=== PATIENT | male | born 1990 | race Caucasian/White ===

== ENCOUNTER 2018-06-29 19:06 | Emergency (ER) | payer OTHER ==
[~2018-06-29 19:06] MED LIST: DOXY-181 PO; INSU100C14 SQ
[2018-06-29] MEDS ORDERED: INSU100V24 SQ (19:14)
--- NOTE | 2018-06-29 19:29 | ER Report ---
History and Physical Time Seen By MD: 19:29 Hx. of Stated Complaint: right 3rd finger laceration while playing rugby HPI/ROS CHIEF COMPLAINT: Laceration HISTORY OF PRESENT ILLNESS: This is a 28-year-old male presents to emergency room for laceration to his right middle finger. Patient states that he is p laying rugby about 30 minutes prior to arrival, came down on his right hand and likely had a hyperextension of the right middle finger where the skin split at the palmar side of the DIP joint. The tendon is visible, he does have good flexion and extension of the finger. Minimal pain, minimal bleeding. No other injuries. Denies hitting his head. No nausea or vomiting. REVIEW OF SYSTEMS: Respiratory: No cough, no dyspnea. Cardiovascular: No chest pain, no palpitations. Gastrointestinal: No vomiting, no abdominal pain. Musculoskeletal: As above. Integumentary: As above. Allergies: Coded Allergies: sulfamethoxazole (Verified Allergy, Mild, ITCHING, 06/29/18) trimethoprim (Verified Allergy, Mild, ITCHING, 06/29/18) Home Meds Active Scripts Cephalexin 500 Mg Tab (KEFLEX 500 MG TAB) 500 Mg Tablet, 500 MG PO Q6H, #28 TAB Prov:GRACE CARTER Brenda GEAR CHANGER-BC 06/29/18 Reported Medications Insulin Lispro 100 Un/Ml Vial (HUMALOG 100 U/ML VIAL) 100 Unit/1 Ml Vial, 45 UNIT SQ DAILY, VIAL 06/29/18 Discontinued Reported Medications Insulin Aspart (NOVOLOG) 100 Unit/1 Ml Cartridge, 100 UNIT SQ 12/07/14 Past Medical/Surgical History The patient has a past medical and surgical history of type I diabetes, uses insulin pump, cecal volvulus. Reviewed Nurses Notes: Yes Smoking Status: Never Smoker Hx Substance Use Disorder: No Hx Alcohol Use: No Constitutional Vital Sign - Last 24 Hours 06/29/18 06/29/18 06/29/18 06/29/18 19:10 19:15 19:30 19:45 Temp 97.9 Pulse 82 79 90 91 Resp 16 B/P (MAP) 141/79 Pulse Ox 95 93 92 94 O2 Delivery Room Air 06/29/18 06/29/18 06/29/18 20:00 20:15 20:30 Pulse 88 88 90 B/P (MAP) 132/87 (102) Pulse Ox 93 92 92 Physical Exam General Appearance: The patient is alert, has no immediate need for airway protection and no current signs of toxicity. Eyes: Pupils equal and round no injection. Respiratory: Chest is non tender, lungs are clear to auscultation. Cardiac: regular rate and rhythm. Gastrointestinal: Abdomen is soft and non tender, no masses, bowel sounds normal. Musculoskeletal: Neck: Neck is supple and non tender. Extremities have full range of motion and are non tender. Skin: To semi-a laceration to the palmar side of the right middle finger at the DIP joint. Tendon is visualized no injury identified. DIFFERENTIAL DIAGNOSIS: After history and physical exam differential diagnosis was considered for laceration. Medical Decision Making ED Course/Re-evaluation ED Course The patient was admitted to a room. A history and physical were obtained. Diagnoses were considered. The laceration was thoroughly irrigated and repaired as noted below. Patient tolerated well. Patient was placed on Keflex. He will also follow-up with Dr. Acosta for reevaluation. He was placed in a pressure dressing and a splint in anatomic position. The patient had no other questions or concerns at this time and was discharged home. Procedure: Laceration repair. Verbal consent was obtained from the patient. The 2 cm laceration on the palmar side of the middle right finger at the DIP was anesthetized in the usual fashion. The wound was scrubbed, draped and explored to its base with a gloved finger. There were no deep structures involved. No tendon injury was identified. The wound was repaired with 7, 5-0 simple interrupted sutures. The wound repair was simple. The procedure was performed by myself. Decision to Disposition Date: Jun 29, 2018 Decision to Disposition Time: 20:18 Depart Departure Latest Vital Signs Vital Signs Date Time Temp Pulse Resp B/P (MAP) Pulse Ox O2 Delivery O2 Flow Rate FiO2 06/29/18 20:30 90 132/87 (102) 92 06/29/18 19:10 97.9 16 Room Air Impression: Primary Impression: Finger laceration Condition: Improved Disposition: HOME OR SELF-CARE Referrals: ASHWIN ACOSTA MD 5 Days New Scripts Cephalexin 500 Mg Tab (KEFLEX 500 MG TAB) 500 Mg Tablet 500 MG PO Q6H, #28 TAB Prov: GRACE CARTER GEAR CHANGER-BC 06/29/18 Patient Instructions: Finger Laceration (ED) Additional Instructions: Keep wound dry for 48 hours. Follow up with your primary care provider in the next 7 days to have sutures removed. Monitor for signs of infection; redness, swelling, heat, discharge, increasing pain or red streaking. Take the antibiotics as prescribed. Follow-up with Dr. Acosta for reevaluation. Take Tylenol or Ibuprofen as needed for pain. Return to the ER with any concerns. You may change dressing as needed. Problem Qualifiers Primary Impression: Finger laceration Encounter type: initial encounter Finger: middle finger Damage to nail status: without damage Foreign body presence: without foreign body Laterality: right Qualified Codes: S61.212A - Laceration without foreign body of right middle finger without damage to nail, initial encounter GRACE CARTER GEAR CHANGER-BC Jun 29, 2018 19:29
[2018-06-29] MEDS ORDERED: CEPH500T7 PO (20:24)
[2018-06-29] MEDS ORDERED: CEPHALEXIN MONO 500 MG CAP PO ONE (20:25)
[2018-06-29 20:30] VITALS: BP 132/87
== END 2018-06-29 20:38 | disposition home or self-care (01) ==
LOC: ER 19:12
DX: S61.212A Laceration without foreign body of right middle finger without damage to nail, initial encounter (principal)
CPT/HCPCS: 99283